=== PATIENT | female | born 1985 | race Caucasian/White ===

== ENCOUNTER 2016-05-10 07:46 | Outpatient (CLI) | payer OTHER | END 2016-05-10 07:47 | disposition home or self-care (01) | DX: M51.36 Other intervertebral disc degeneration, lumbar region (principal); M54.2 Cervicalgia; M47.816 Spondylosis without myelopathy or radiculopathy, lumbar region; R60.0 Localized edema; M25.80 Other specified joint disorders, unspecified joint ==

== ENCOUNTER 2016-05-29 16:35 | Outpatient (CLI) | payer OTHER | END 2016-05-29 16:36 | disposition home or self-care (01) | DX: M45.9 Ankylosing spondylitis of unspecified sites in spine (principal); M54.5 Low back pain ==

== ENCOUNTER 2017-05-04 16:24 | Outpatient (CLI) | payer OTHER ==
--- NOTE | 2017-05-05 11:03 | MRI Report ---
EXAM: MRI CERVICAL SPINE WITHOUT CONTRAST EXAM DATE: 05/04/2017 05:03 PM. CLINICAL HISTORY: Ankylosing spondylitis at unspecified sites. Decreased range of motion. Increased p ain and neck stiffness COMPARISONS: MRI cervical spine and MRI sacroiliac joints 05/10/2016. TECHNIQUE: Multiplanar, multisequence T1-weighted and fluid-sensitive sequences of the cervical spine without contrast. Other: None. FINDINGS: No suspicious marrow replacement is present in the cervical vertebral bodies. No abnormal signal is seen in the cervical spinal cord. No increased STIR signal is seen involving the endplates of the cervical vertebral bodies. The left C2-C3 facet joint appears to have fused in the interim. There was some edema associated with this facet joint on the comparison study. There is what appears to be fusion between the occipital condyle and the lateral mass of C1 on the ri ght and to some degree on the left. This was present on the comparison study. On the comparison study there was edema centered on the articulation of the C1 lateral mass at the C2 vertebral body bilaterally. This has nearly resolved bilaterally. A small amount of fluid superior to the anterior arch of C1 is present. This has decreased. Edema inv olving the anterior aspect of C1 has decreased. Gentle reversal of the normal cervical lordosis is present centered over C3. This is new. There is a 9 mm short axis level II lymph node on the left. No posterior disk protrusion is seen. There is no central canal or foraminal stenosis. IMPRESSION: 1. There has been interval development of fusion across the left facet joint at C2-C3. This is consis tent with ankylosis in this patient with ankylosing spondylitis. 2. There is some degree of fusion between the occipital condyle and the lateral mass of C1 bilaterall y greater on the right relative to the left. This is stable and consistent with ankylosis in this pat ient ankylosing spondylitis. 3. Interval improvement in edema at C1-C2 suggesting improved ankylosing spondylitis. 4. Interval development of gentle reversal of the normal cervical lordosis centered over C3. 5. No posterior disk protrusion, central canal stenosis, or foraminal stenosis is present. 6. A borderline level II lymph node on the left might well be reactive in nature. [facility] Referring Provider Line: [phone] SITE ID: [id number]
== END 2017-05-04 16:25 | disposition home or self-care (01) ==
LOC: DI 16:24
PROVIDERS: ATTEND Radiology Diagnostic Radiology
DX: M45.2 Ankylosing spondylitis of cervical region (principal)
CPT/HCPCS: 72141

== ENCOUNTER 2017-08-05 15:42 | Outpatient (CLI) | payer OTHER | END 2017-08-05 15:43 | disposition home or self-care (01) | LOC: SC 15:42 | PROVIDERS: ATTEND Nurse Practitioner Family | DX: R53.83 Other fatigue (principal); E03.9 Hypothyroidism, unspecified; M45.9 Ankylosing spondylitis of unspecified sites in spine | CPT/HCPCS: 99204; 99212 ==

== ENCOUNTER 2018-03-31 08:00 | Outpatient (CLI) | payer OTHER ==
[2018-03-31 19:12] LABS: BASOPHILS % (AUTO) 0.3 %; EOSINOPHILS # (AUTO) 0.2 10^3/uL (0.0-0.7); EOSINOPHILS % (AUTO) 2.7 %; HGB - HEMOGLOBIN 13.8 g/dL (12.0-16.0); LYMPHOCYTES # (AUTO) 3.5 10^3/uL (1.5-3.5); LYMPHOCYTES % (AUTO) 46.1 %; MEAN CORPUSCULAR HGB CONC 33.6 g/dL (32.0-36.0); MEAN CORPUSCULAR VOLUME 92.4 fL (81.0-99.0); MEAN PLATELET VOLUME 10.3 fL (7.9-10.8); MONOCYTES # (AUTO) 0.6 10^3/uL (0.0-1.0); MONOCYTES % (AUTO) 8.5 %; NEUTROPHILS # (AUTO) 3.2 10^3/uL (1.5-6.6); NEUTROPHILS % (AUTO) 42.4 %; PLT - PLATELET COUNT 192 10^3/uL (130-450); RED BLOOD COUNT 4.44 10^6/uL (4.20-5.40); RED CELL DISTRIBUTION WIDTH 12.8 % (12.0-15.0); WHITE BLOOD COUNT 7.6 x10^3/uL (4.8-10.8)
[2018-03-31 19:28] LABS: BILIRUBIN,URINE NEGATIVE (NEGATIVE); GLUCOSE, URINE (UA) NEGATIVE (NEGATIVE); KETONES,URINE (UA) TRACE mg/dL (NEGATIVE); LEUKOCYTE ESTERASE, URINE NEGATIVE (NEGATIVE); NITRITE,URINE NEGATIVE (NEGATIVE); OCCULT BLOOD,URINE NEGATIVE (NEGATIVE); PROTEIN,URINE NEGATIVE (NEGATIVE); UROBILINOGEN,URINE 0.2 (NORMAL) E.U./dL (NORMAL)
[2018-03-31 19:44] LABS: ALBUMIN 3.5 g/dL (3.2-5.5); ALBUMIN/GLOBULIN RATIO 1.1 (1.0-2.2); BILIRUBIN,TOTAL 0.5 mg/dL (0.2-1.0); CREATININE 0.8 mg/dL (0.4-1.0); TOTAL PROTEIN 6.8 g/dL (6.7-8.2)
[2018-03-31 20:10] LABS: BACTERIA,URINE None Seen /HPF (None Seen); CLARITY,URINE CLEAR (CLEAR); MUCUS,URINE Few Strands; RBC,URINE None Seen /HPF (0-5); SQUAMOUS EPITHELIAL CELL,UR RARE Squamous (<= Few)
[2018-03-31 20:33] LABS: CALCIUM 8.8 mg/dL (8.5-10.3)
== END 2018-03-31 08:01 ==
LOC: LAB.WCP 08:00
PROVIDERS: ATTEND Internal Medicine Rheumatology
DX: M45.9 Ankylosing spondylitis of unspecified sites in spine (principal)
CPT/HCPCS: 36415; 80053; 81001; 85025; 85651; 86160

== ENCOUNTER 2018-07-16 08:00 | Outpatient (CLI) | payer OTHER ==
[2018-07-16 12:29] LABS: BASOPHILS % (AUTO) 0.3 %; EOSINOPHILS # (AUTO) 0.3 10^3/uL (0.0-0.7); EOSINOPHILS % (AUTO) 4.1 %; HGB - HEMOGLOBIN 13.7 g/dL (12.0-16.0); LYMPHOCYTES # (AUTO) 2.8 10^3/uL (1.5-3.5); MEAN CORPUSCULAR HEMOGLOBIN 30.6 pg (27.0-31.0); MEAN CORPUSCULAR VOLUME 89.9 fL (81.0-99.0); MEAN PLATELET VOLUME 9.1 fL (7.9-10.8); MONOCYTES # (AUTO) 0.5 10^3/uL (0.0-1.0); MONOCYTES % (AUTO) 6.7 %; NEUTROPHILS # (AUTO) 3.7 10^3/uL (1.5-6.6); NEUTROPHILS % (AUTO) 50.9 %; PLT - PLATELET COUNT 222 10^3/uL (130-450); RED BLOOD COUNT 4.47 10^6/uL (4.20-5.40); RED CELL DISTRIBUTION WIDTH 12.5 % (12.0-15.0); WHITE BLOOD COUNT 7.3 x10^3/uL (4.8-10.8)
[2018-07-16 12:53] LABS: BILIRUBIN,URINE NEGATIVE (NEGATIVE); GLUCOSE, URINE (UA) NEGATIVE (NEGATIVE); KETONES,URINE (UA) NEGATIVE (NEGATIVE); LEUKOCYTE ESTERASE, URINE NEGATIVE (NEGATIVE); NITRITE,URINE NEGATIVE (NEGATIVE); OCCULT BLOOD,URINE NEGATIVE (NEGATIVE); PROTEIN,URINE NEGATIVE (NEGATIVE); UROBILINOGEN,URINE 0.2 (NORMAL) E.U./dL (NORMAL)
[2018-07-16 12:54] LABS: CLARITY,URINE CLEAR (CLEAR)
[2018-07-16 13:06] LABS: ALBUMIN 3.2 g/dL (3.2-5.5); ALBUMIN/GLOBULIN RATIO 0.9 (1.0-2.2); BILIRUBIN,TOTAL 0.6 mg/dL (0.2-1.0); CALCIUM 8.6 mg/dL (8.5-10.3); CREATININE 0.7 mg/dL (0.4-1.0); TOTAL PROTEIN 6.7 g/dL (6.7-8.2)
[2018-07-16 13:09] LABS: BACTERIA,URINE Few /HPF (None Seen); RBC,URINE None Seen /HPF (0-5); SQUAMOUS EPITHELIAL CELL,UR RARE Squamous (<= Few)
[2018-07-20 13:46] LABS: COMPLEMENT COMPONENT C3C 107 mg/dL (83-193); COMPLEMENT COMPONENT C4C 16 mg/dL (15-57)
== END 2018-07-16 23:59 | disposition home or self-care (01) ==
LOC: LAB.WCP 08:00
PROVIDERS: ATTEND Internal Medicine Rheumatology
DX: M45.9 Ankylosing spondylitis of unspecified sites in spine (principal); R76.8 Other specified abnormal immunological findings in serum
CPT/HCPCS: 36415; 80053; 81001; 81599; 85025; 85651; 86160; 86225